=== PATIENT | female | born 1990 | race Two or more races ===

== ENCOUNTER 2017-04-30 12:41 | Outpatient (CLI) | payer OTHER ==
[2017-04-30] MEDS ORDERED: METOPROLOL TARTRATE INJ 5 MG/5 ML AMPUL ONE (13:23)
[2017-04-30] MEDS ORDERED: IOHEXOL-350 100 ML VIAL IV ONE (13:41)
[2017-04-30] MEDS ORDERED: IV NS 0.9% 250 ML IV ONE (13:42)
== END 2017-04-30 23:59 | disposition home or self-care (01) ==
LOC: CT 12:41
PROVIDERS: ATTEND Internal Medicine
DX: R07.9 Chest pain, unspecified (principal)
CPT/HCPCS: 75574; J3490; J7050; Q9967